=== PATIENT | male | born 1995 | race Caucasian/White ===

== ENCOUNTER 2016-12-10 03:05 | Emergency (ER) | payer OTHER ==
[~2016-12-10] VITALS: Ht 182.9 cm; Wt 84.0 kg
[2016-12-10] MEDS ORDERED: FLEXERIL10 MG PO (05:22)
[2016-12-10 05:29] VITALS: BP 133/78
== END 2016-12-10 05:47 | disposition home or self-care (01) ==
LOC: EME 03:05
DX: S80.01XA Contusion of right knee, initial encounter (principal); S39.012A Strain of muscle, fascia and tendon of lower back, initial encounter; V49.40XA Driver injured in collision with unspecified motor vehicles in traffic accident, initial encounter; Y92.410 Unspecified street and highway as the place of occurrence of the external cause; Z88.6 Allergy status to analgesic agent
CPT/HCPCS: 73564; 99281; 99283